=== PATIENT | male | born 1950 | race Caucasian/White ===

== ENCOUNTER → 2017-03-16 | Outpatient (CLI) | payer BC ==
--- NOTE | 2017-03-16 16:38 | CT ---
CT of the abdomen and pelvis without contrast. HISTORY: Urinary calculus TECHNIQUE: Axial CT images were obtained of the abdomen and pelvis without contrast. Coronal and sag ittal reconstructions obtained. FINDINGS: The lung bases are clear, no pleural effusion. There is a tiny 2 mm subpleural nodule within the lef t lower lobe laterally. The liver, spleen, adrenal glands, and pancreas appear unremarkable for noncontrast examination. The gallbladder appears normal. There is no bulky retroperitoneal lymphadenopathy. No abdominal ascite s. There is a 3 to 4 mm stone within the distal right ureter without significant proximal hydronephrosi s. Punctate nonobstructing renal stones also noted bilaterally. The large and small bowel are normal in caliber without evidence of obstruction. No pericecal or per icolonic inflammation identified. There is no bulky pelvic lymphadenopathy. No free fluid. No free a ir. The urinary bladder is decompressed. Subchondral cystic changes noted within the acetabula bilaterally. Mild to moderate degenerative ch anges noted within the lower lumbar spine. IMPRESSION: 1. There is a 3 to 4 mm stone within the mid to distal right ureter without significant proximal hyd ronephrosis. 2. Punctate nonobstructing nephrolithiasis bilaterally. 3. Tiny 2 mm subpleural nodule within the left lower lobe laterally. If the patient has known risk f actors consider one year follow-up.
== END ==
LOC: MW.DI 13:38
PROVIDERS: ATTEND Urology
DX: N20.9 Urinary calculus, unspecified (principal); N20.0 Calculus of kidney
CPT/HCPCS: 74176; 74176-26